=== PATIENT | male | born 2000 | race Caucasian/White ===

== ENCOUNTER 2020-06-06 15:42 | Emergency (ER) | payer OTHER, SELFPAY ==
--- NOTE | ~2020-06-06 | XR_ITS ---
EXAMINATION: XR foot RT min 3V DATE: 06/06/2020 16:49 INDICATION: Right foot pain post injury TECHNIQUE: Dorsoplantar, two oblique and lateral views of the right foot were obtained. COMPARISON: None. FINDINGS: Alignment is normal. No fracture. Joint spaces are normal. Mild soft tissue swelling over the dorsola teral aspect of the midfoot. IMPRESSION: 1. No osseous abnormality. Reviewed, dictated and finalized at location A. IMPRESSION: 1. No osseous abnormality.
[2020-06-06 15:50] VITALS: BP 104/71; PULSE 118; RESP 18; TEMP 36.2; O2SAT 97
--- NOTE | 2020-06-06 17:40 | ED.LOWEXIN ---
HPI - Extremity Injury (Lower) General Chief Complaint: Extremity Injury, Lower Stated Complaint: right foot injury Time Seen by Provider: 06/06/20 15:51 Source: patient and family Mode of arrival: ambulatory Limitations: no limitations History of Present Illness HPI Narrative: 20-year-old male with no major medical history here with complaints of right foot numbness for past 2 weeks. Patient states that he dropped a dresser on his foot and ever since then his foot is numb. He states that he was seen at [facility] was referred to a neurologist. Patient is unable to get hold of neurology. He denies any other injuries or other complaints. complaint: foot injury Injury: Right: foot Type of Injury: blunt Place: home Severity: moderate Relieving factors: nothing Exacerbating factors: nothing Related Data Home Medications Medication Instructions Recorded Confirmed No Home Medications 06/06/20 06/06/20 Allergies Allergy/AdvReac Type Severity Reaction Status Date / Time Penicillins Allergy Unknown Unknown Verified 06/06/20 15:54 Review of Systems Review of Systems: All systems reviewed & are unremarkable except as noted in HPI and below Constitutional: Constitutional: Reports no additional constitutional complaints ENT: Reports system reviewed and no additional complaints, except as documented Cardiovascular: Cardiovascular: Reports no additional cardiovascular complaints Respiratory: Respiratory: Reports no additional respiratory complaints Gastrointestinal: Gastrointestinal: Reports no additional gastrointestinal complaints Musculoskeletal: Musculoskeletal: Reports no additional musculoskeletal complaints and Reports as per HPI Exam Narrative: Exam Narrative: GENERAL: Well-appearing, well-nourished, and in no acute distress. HEAD: Normocephalic, atraumatic. EYES: PERRLA and EOMI. . NECK: Supple. CHEST: Clear to auscultation. No respiratory distress. HEART: Regular rate and rhythm. No murmur heard. Normal peripheral pulses. ABDOMEN: Soft, nontender, nondistended, normal active bowel sounds. EXTREMITIES: Normal range of motion. No edema.Right Foot appears carlos enrique ,states mid foot to the toe are numb, no foot drop SKIN: Warm, dry, no rash. NEURO: No focal deficits. Alert and oriented x3. PSYCH: Normal mood and affect. Course Course Emergency Course: I informed patient and his mother about the x-ray findings. Advised him to follow-up with neurology either at [place] or [facility] for EMG. Vital Signs Vital signs: Vital Signs Temperature 36.2 C L 06/06/20 15:50 Pulse Rate 118 H 06/06/20 15:50 Respiratory Rate 18 06/06/20 15:50 Blood Pressure 104/71 06/06/20 15:50 Pulse Oximetry 97 06/06/20 15:50 Temperature 36.2 C L 06/06/20 15:50 Pulse Rate 118 H 06/06/20 15:50 Respiratory Rate 18 06/06/20 15:50 Blood Pressure 104/71 06/06/20 15:50 Pulse Oximetry 97 06/06/20 15:50 MDM - Extremity Injury (Lower) Imaging Data Radiologist's impression: ITS Impressions Foot X-Ray 06/06/20 17:12 IMPRESSION: 1. No osseous abnormality. Discharge Plan Discharge Clinical Impression: Neuropraxia of lower extremity Contusion of foot Qualifiers: Encounter type: initial encounter Laterality: right Qualified Code(s): S90.31XA - Contusion of right foot, initial encounter Patient Disposition: Home, Self-Care Condition: Stable Instructions: Antibiotic Form, Contusion in Adults (ED) Additional Instructions: Follow with Neurology at [facility] or [facility] , take Ibuprofen for pain Prescriptions: No Action No Home Medications RF: 0 Follow-up/Referrals: PHYSICIAN,[employer] [Primary Care Provider] - Cash Perales MD [Physician] - Time of Disposition: 17:47
== END 2020-06-06 17:56 | disposition home or self-care (01) ==
PROVIDERS: Emergency Provider Family Medicine
DX: S84.91XA Injury of unspecified nerve at lower leg level, right leg, initial encounter (principal); S90.31XA Contusion of right foot, initial encounter; W20.8XXA Other cause of strike by thrown, projected or falling object, initial encounter
CPT/HCPCS: 73630; 99283